=== PATIENT | female | born 1950 | race Caucasian/White ===

== ENCOUNTER 2018-11-07 21:42 | Inpatient (IN) | payer BC ==
[~2018-11-07] VITALS: Ht 165.1 cm; Wt 87.1 kg
[2018-11-07 21:45] VITALS: BP 139/88
--- NOTE | 2018-11-07 22:02 | NUR ---
PT AMBULATED TO ER BED 10
[2018-11-07] MEDS ORDERED: ADENOSINE 6 MG/2 ML VIAL IVP ONE (22:05)
--- NOTE | 2018-11-07 22:05 | NUR ---
BIB SELF CO RACING HEART RATE SINCE 12 PM. CURRENT HR: 150. EKG IN TRIAGE SHOWS SVT. PT IS A/O X4. DENIES CHEST PAIN, SOB, OR PAIN OF ANY KIND. PT REPORTS SHE HAS HAD TACHYCARDIC EPISODES IN THE PAST AND HAS BEEN ABLE TO MANAGE WITH VAGAL MANUEVERS. TODAY PT STATES SHE TRIED SUBMERGING FACE IN ICE WATER BUT IT DID NOT HELP. PT IS CALM, RESPONDING TO QUESTIONS, AND FOLLOWS COMMANDS. ERMD MADE AWARE AND IS AT BEDSIDE.
--- NOTE | 2018-11-07 22:15 | NUR ---
IV INITIATED TO LEFT AC AND LABS DRAWN.
[2018-11-07 22:22] LABS: BASOPHILS # (AUTO) 0.1 K/uL (0.00-0.22); BASOPHILS % (AUTO) 0.6 % (0.0-2.0); EOSINOPHILS # (AUTO) 0.3 K/uL (0-0.4); EOSINOPHILS % (AUTO) 2.5 % (0.0-4.0); HEMATOCRIT 43.3 % (36-48); HEMOGLOBIN 14.4 g/dL (12.0-16.0); LYMPHOCYTES # (AUTO) 5.9 K/uL (2.5-16.5); LYMPHOCYTES % (AUTO) 52.3 % (20.5-51.1); MEAN CORPUSCULAR HEMOGLOBIN 28 pg (27-31); MEAN CORPUSCULAR HGB CONC 33 g/dL (33-37); MEAN CORPUSCULAR VOLUME 83.6 fL (80-94); MONOCYTES % (AUTO) 8.6 % (1.7-9.3); NEUTROPHILS # (AUTO) 4.1 K/uL (1.8-7.7); PLATELET COUNT (AUTO) 236 K/uL (140-450); RED BLOOD CELL COUNT(AUTO) 5.18 MIL/uL (4.20-5.40); RED CELL DISTRIBUTION WIDTH 13.8 % (11.6-13.7); WHITE BLOOD COUNT (AUTO) 11.3 K/uL (4.8-10.8)
--- NOTE | 2018-11-07 22:25 | NUR ---
DR GAMING AT BEDSIDE, PT HEARTRATE 88 AT THIS TIME. OK TO HOLD ADNOSINE AND CONTINUE TO MONITOR Addendum: 11/07/18 at 2230 by MEDFTA ADENOSINE 6 MG
[2018-11-07 22:31] LABS: ANION GAP 15.5 (8-16); CARBON DIOXIDE 26.7 mmol/L (21-32); CREATININE 1.2 mg/dL (0.6-1.3); POTASSIUM 4.2 mmol/L (3.5-5.1)
[2018-11-07 22:36] LABS: ALBUMIN 3.8 g/dL (3.4-5.0); TOTAL BILIRUBIN 0.4 mg/dL (0.0-1.0)
--- NOTE | 2018-11-07 23:16 | NUR ---
ASSISTED PT TO RR.
[2018-11-07] MEDS ORDERED: HYDR-5092 PO (23:59)
[2018-11-07] MEDS ORDERED: GABA300C PO (23:59)
[2018-11-07] MEDS ORDERED: ESTR1TAB19 PO (23:59)
[2018-11-07] MEDS ORDERED: LOSA25TA43 PO (23:59)
[2018-11-07] MEDS ORDERED: TRAM50TA1 PO (23:59)
[2018-11-07] MEDS ORDERED: FLUO10CA21 PO (23:59)
[2018-11-08] MEDS ORDERED: METOPROLOL 5 MG/5 ML VIAL IVP PRN (02:15)
[2018-11-08] MEDS ORDERED: ONDANSETRON 4 MG/2 ML VIAL IVP PRN (02:15)
[2018-11-08] MEDS ORDERED: MORPHINE SULFATE 4 MG/ML SYR IVP PRN (02:15)
[2018-11-08 02:45] VITALS: BP 128/67
--- NOTE | 2018-11-08 02:45 | NUR ---
PT ARRIVED TO UNIT VIA GURNEY. AMBULATED TO BED UNASSISTED. RECEIVED REPORT FROM ER NURSE ESTHER-DAVON. PT AOX4, ON ROOM AIR WITH LEFT AC #20G. DISCUSSED PLAN OF CARE AND PT VERBALIZED UNDERSTANDING. VITAL SIGNS TAKEN AND TOLERATED WELL. NO S/S OF RESPIRATORY DISTRESS OR DISCOMFORT NOTED AT THIS TIME. MRSA NARES SWAB COLLECTED AND TOLERATED WELL. ORIENTED PT TO BEDROOM, CALL LIGHT, BED, BATHROOM. BED IN LOWEST POSITION, BED BREAKS ON, BOTH SIDE RAILS UP AND FALL PRECAUTIONS IN PLACE. BEDSIDE TABLE AND CALL LIGHT ARE WITHIN REACH. WILL CONTINUE TO MONITOR.
[2018-11-08 02:49] LABS: HEMATOCRIT 39.7 % (36-48); HEMOGLOBIN 13.2 g/dL (12.0-16.0); MEAN CORPUSCULAR HEMOGLOBIN 28 pg (27-31); MEAN CORPUSCULAR HGB CONC 33 g/dL (33-37); MEAN CORPUSCULAR VOLUME 83.1 fL (80-94); PLATELET COUNT (AUTO) 210 K/uL (140-450); RED BLOOD CELL COUNT(AUTO) 4.78 MIL/uL (4.20-5.40); RED CELL DISTRIBUTION WIDTH 13.7 % (11.6-13.7); WHITE BLOOD COUNT (AUTO) 9.5 K/uL (4.8-10.8)
--- NOTE | 2018-11-08 02:50 | NUR ---
Patient will be admitted to care of Dr. Rich. Admited to Telemetry. Will go to room 112A. Belongings list completed. Report to DAVON Mayfield.
[2018-11-08] MEDS: NACL 0.9% 1,000 ML IV SCH ×2 (03:13→15:00)
[2018-11-08 03:22] LABS: FREE T4 (FREE THYROXINE) 1.08 ng/dL (0.76-1.46); THYROID STIMULATING HORMONE 5.06 uIU/mL (0.34-3.74)
[2018-11-08 03:27] LABS: EOSINOPHILS % (MANUAL) 3 % (0-4); LYMPHOCYTES % (MANUAL) 57 % (20-46); MONOCYTES % (MANUAL) 3 % (5-12)
[2018-11-08 03:33] LABS: ANION GAP 11.5 (8-16); CARBON DIOXIDE 27.5 mmol/L (21-32); CREATININE 1.1 mg/dL (0.6-1.3)
[2018-11-08 04:00] VITALS: BP 133/63
--- NOTE | 2018-11-08 04:00 | NUR ---
VITAL SIGNS TAKEN AND TOLERATED WELL. NO S/S OF RESPIRATORY DISTRESS OR DISCOMFORT NOTED AT THIS TIME. WILL CONTINUE TO MONITOR.
--- NOTE | 2018-11-08 06:00 | NUR ---
PT RESTING IN BED. NO S/S OF RESPIRATORY DISTRESS OR DISCOMFORT NOTED AT THIS TIME. WILL CONTINUE TO MONITOR.
--- NOTE | 2018-11-08 07:39 | NUR ---
ENDORSED PT CARE TO DAY SHIFT NURSE EMILY FOR CONTINUITY OF CARE.
--- NOTE | 2018-11-08 07:43 | NUR ---
RECEIVED PT FROM PROMOTIONAL ADVERTISING ASSISTANT NURSEROGELIO, PT IS AWAKE AND SEATED ON THE BED WITH SIDE RAILS UP AND CALL LIGHT WITHIN REACH, PT DENIES PAIN AND NO SOB NOTED, PT HAS AN IV LINE ON THE LEFT AC G. 20 WITH NS AT 75ML/HR INFUSING AND INTACT. NO SIGN OF DISTRESS NOTED AND WILL CONTINUE TO MONITOR PT.
[2018-11-08 08:00] VITALS: BP 145/71
--- NOTE | 2018-11-08 08:45 | NUR ---
PT IS AWAKE AND VITAL SIGNS TAKEN, BP IS 145/71, PULSE IS 82, O2 SATURATION IS 95%, , NO SIGN OF DISTRESS NOTED AND WILL MONITOR PT.
--- NOTE | 2018-11-08 09:30 | NUR ---
PT IS AWAKE AND SEATED ON THE BED, ON THE BEDSIDE. NO SIGN OF DISTRESS NOTED.
[2018-11-08 12:00] VITALS: BP 161/74
--- NOTE | 2018-11-08 12:01 | NUR ---
PAGED BERNADINE KATZ TO INFORM MD OF THE PT'S BP RESULT OF 168/82, PULSE IS 90, RECHECKED AFTER 2 MINS AND BP IS 161/74, PULSE IS 88. AWAITING FOR MD CALL BACK.
--- NOTE | 2018-11-08 12:05 | NUR ---
SPOKE TO BERNADINE KATZ AND INFORMED MD THAT PT'S BP IS 168/82, PULSE IS 90, DR. COLINDRES MADE A TELEPHONE ORDER TO GIVE PT LABETALOL 100MG POX1 DOSE, ORDER READ BACK AND VERIFIED. WILL CARRY OUT MD ORDER.
[2018-11-08] MEDS: HYDROcodone/APAP 5/325 MG 1 TAB TAB PO PRN ×2 (12:20→21:32)
--- NOTE | 2018-11-08 12:20 | NUR ---
PT IS AWAKE ANDSEATED ON THE BED WITH ON THE BEDSIDE, VERBALIZED A PAIN RATE OF 7/10 ON HER LOWER ABDOMEN,VITAL SIGNS CHECKED DONE AND BP IS 161/74, PULSE IS 90, O2 SATURATION IS 96%, PAIN MEDICATION WAS GIVEN AND PT TOLERATED IT. NO OTHER UNTOWARD SYMPTOM NOTED. WILL MONITOR PT.
[2018-11-08] MEDS ORDERED: LABETALOL 100 MG TAB PO SCH (12:38)
--- NOTE | 2018-11-08 12:50 | NUR ---
PT IS AWAKE AND VITAL SIGNS WAS CHECKED AND BP IS 157/67, PULSE IS 85, O2 SATURATION IS 95%, ORAL MEDCAITION WAS GIVEN TO PT AND PT TOLERATED IT. WILL MONITOR PT.
--- NOTE | 2018-11-08 15:15 | NUR ---
DR. COLINDRES CAME TO THE PT'S ROOM AND SPOKE AND ASSESSED THE PT, PT RESPONDING APPROPRIATELY.
[2018-11-08] MEDS ORDERED: ASPI-1718 PO (15:56)
[2018-11-08 16:00] VITALS: BP 139/63
--- NOTE | 2018-11-08 16:10 | NUR ---
PT IS AWAKE AND SEATED ON THE BED TALKING TO ON THE BEDSIDE, VITAL SIGNS TAKEN, BP IS 139/63, PULSE IS 75, TEMPERATURE IS 98, O2 SATURATION IS 96% AND PT DENIES PAIN AT THIS TIME.
--- NOTE | 2018-11-08 17:40 | NUR ---
PT IS AMBULATING TO THE HALLWAY, NO SOB NOTED, PT ASKED FOR HAND TOWELS AND CLEAN GOWN AND WANTED TO FRESHEN UP HERSELF.
--- NOTE | 2018-11-08 19:25 | NUR ---
ENDORSED PT TO SALES ACCOUNT COORDINATOR NURSEEDILBERTO FOR CONTINUITY OF CARE, PT IS STABLE AT THIS TIME WIT ON THE BEDSIDE.
--- NOTE | 2018-11-08 19:26 | NUR ---
REPORT RECEIVED FROM AM NURSE AT BEDSIDE. PT IN STABLE CONDITION. AAOX4. INTRODUCED SELF TO PT. BOARD UPDATED. NO COMPLAINTS OF PAIN. NO SOB. AFEBRILE. IV SITE L AC 20G RUNNING NS@75ML/HR PATENT AND INTACT. SKIN WARM, DRY, AND INTACT WITH NO OPEN WOUNDS. BED LOCKED IN LOW POSITION. CALL ESTRADA WITHIN REACH. SAFETY PRECAUTIONS IN PLACE. ALL NEEDS MET AT THIS TIME.
[2018-11-08 20:00] VITALS: BP 140/62
--- NOTE | 2018-11-08 21:32 | NUR ---
NORCO GIVEN FOR 6/10 PAIN. PT TOLERATED WELL.
--- NOTE | 2018-11-08 23:15 | NUR ---
PT AWAKE AND ALERT ON HER PHONE IN BED. NO S/S OF DISTRESS NOTED. BREATHING EVEN, UNLABORED, AND WNL. WILL CONTINUE TO MONITOR.
[2018-11-09] VITALS: BP 138/65
--- NOTE | 2018-11-09 01:15 | NUR ---
PT SLEEPING COMFORTABLY IN BED BUT AROUSABLE. NO S/S OF DISTRESS NOTED. BREATHING EVEN, UNLABORED, AND WNL. WILL CONTINUE TO MONITOR.
--- NOTE | 2018-11-09 03:10 | NUR ---
PT SLEEPING COMFORTABLY IN BED BUT AROUSABLE. NO S/S OF DISTRESS NOTED. NO COMPLAINTS OF PAIN. NO SOB. AFEBRILE. WILL CONTINUE TO MONITOR.
[2018-11-09 04:00] VITALS: BP 133/69
--- NOTE | 2018-11-09 04:30 | NUR ---
PT UP OUT OF BED TO USE THE RESTROOM. NO S/S OF DISTRESS NOTED. WILL CONTINUE TO MONITOR.
[2018-11-09] MEDS: NACL 0.9% 1,000 ML IV SCH (04:40)
--- NOTE | 2018-11-09 05:50 | NUR ---
PT SLEEPING BUT AROUSABLE. NO S/S OF DISTRESS NOTED. BREATHING EVEN, UNLABORED, AND WNL. WILL CONTINUE TO MONITOR.
[2018-11-09 07:08] LABS: BASOPHILS % (AUTO) 0.6 % (0.0-2.0); EOSINOPHILS # (AUTO) 0.2 K/uL (0-0.4); EOSINOPHILS % (AUTO) 2.6 % (0.0-4.0); HEMATOCRIT 39.1 % (36-48); LYMPHOCYTES # (AUTO) 3.9 K/uL (2.5-16.5); LYMPHOCYTES % (AUTO) 53.5 % (20.5-51.1); MEAN CORPUSCULAR HEMOGLOBIN 28 pg (27-31); MEAN CORPUSCULAR HGB CONC 33 g/dL (33-37); MEAN CORPUSCULAR VOLUME 83.5 fL (80-94); MONOCYTES # (AUTO) 0.6 K/uL (0.8-1.0); MONOCYTES % (AUTO) 8.9 % (1.7-9.3); NEUTROPHILS # (AUTO) 2.5 K/uL (1.8-7.7); NEUTROPHILS % (AUTO) 34.4 % (42.2-75.2); PLATELET COUNT (AUTO) 187 K/uL (140-450); RED BLOOD CELL COUNT(AUTO) 4.68 MIL/uL (4.20-5.40); RED CELL DISTRIBUTION WIDTH 13.9 % (11.6-13.7); WHITE BLOOD COUNT (AUTO) 7.3 K/uL (4.8-10.8)
--- NOTE | 2018-11-09 07:15 | NUR ---
REPORT GIVEN TO AM NURSE AT BEDSIDE. PT IN STABLE CONDITION.
--- NOTE | 2018-11-09 07:16 | NUR ---
RECEIVED REPORT FROM MANAGER STERILE PROCESSING NURSE. PATIENT SITTING IN BED WATCHING TV. NO DISTRESS NOTED. COMPLAINS OF LOW BACK PAIN, WILL ADMINISTER NORCO. AAOX4, CALM, COOPERATIVE, SKIN COLOR APPROPRIATE TO ETHNICITY, WARM TO TOUCH. SKIN INTACT. IV SITE INTACT, PATENT, AND INFUSING IVF PER MD ORDERS. ABDOMEN SOFT. RESPIRATIONS EVEN, UNLABORED, ON ROOM AIR. REVIEWED PLAN OF CARE WITH PATIENT. PATIENT VERBALIZED UNDERSTANDING. SAFETY MEASURES IN PLACE, CALL LIGHT WITHIN REACH. WILL CONTINUE TO MONITOR.
[2018-11-09 07:28] LABS: ANION GAP 15.7 (8-16); CARBON DIOXIDE 25.3 mmol/L (21-32); CREATININE 0.9 mg/dL (0.6-1.3)
[2018-11-09 07:38] LABS: MAGNESIUM 1.8 mg/dL (1.8-2.4); PHOSPHORUS 3.7 mg/dL (2.5-4.9)
[2018-11-09 08:00] VITALS: BP 148/80
[2018-11-09] MEDS: HYDROcodone/APAP 5/325 MG 1 TAB TAB PO PRN (08:26)
--- NOTE | 2018-11-09 08:30 | NUR ---
PATIENT SITTING IN BED WATCHING TV. COMPLAINS OF LOW BACK PAIN, NORCO GIVEN. OTHER. SCHEDULED MEDICATIONS DUE GIVEN. WILL CONTINUE TO MONITOR.
[2018-11-09] MEDS ORDERED: ASPIRIN 81 MG TAB.CHEW PO SCH (09:00)
--- NOTE | 2018-11-09 09:52 | NUR ---
PATIENT HAS BEEN SCREENED AND CATEGORIZED MODERATE NUTRITION RISK. PATIENT WILL BE SEEN WITHIN 3-5 DAYS OF ADMISSION. 11/10/18-11/12/[address]
--- NOTE | 2018-11-09 11:30 | NUR ---
PATIENT SITTING IN BED TALKING WITH FAMILY MEMBER AT BEDSIDE. NO DISTRESS NOTED. DENIES ANY PAIN. WILL CONTINUE TO MONITOR.
[2018-11-09 12:00] VITALS: BP 150/71
--- NOTE | 2018-11-09 14:30 | NUR ---
PATIENT SITTING AT BEDSIDE ON HER PHONE. CONDITION UNCHANGED. WILL CONTINUE TO MONITOR.
--- NOTE | 2018-11-09 16:45 | NUR ---
DISCHARGE INSTRUCTIONS PROVIDED TO PATIENT IN PREFERRED LANGUAGE OF ESTONIAN. FOLLOW-UP VISIT WITH PCP, NEW/CHANGED MEDICATION REGIMEN AND SIDE EFFECTS, DIET REGIMEN, AND TO FOLLOW-UP WITH TEXTILE COLORIST FORMULATOR. ANSWERED ALL OF PATIENT/FAMILY QUESTIONS REGARDING DISCHARGE. PATIENT/FAMILY VERBALIZED COMPLETE UNDERSTANDING. IV SITE REMOVED WITH MINIMAL BLOOD AND LUMEN COMPLETELY INTACT. ID BANDS REMOVED. ESCORTED PATIENT TO LOBBY VIA WHEELCHAIR. PATIENT DISCHARGED AT THIS TIME IN PRIVATE VEHICLE TO HOME IN STABLE CONDITION.
--- NOTE | 2018-11-10 12:51 | NUR ---
RECEIVED CALL FROM AJITH FROM [facility] [place]. REQUESTED ER REPORT AND H&P TO BE FAXED TO HER. FAXED FACE SHEET, ER REPORT AND H&P TO HER. TOLD HER NO DC SUMMARY YET. FAX [phone] PHONE [phone]
== END 2018-11-09 16:45 | disposition home or self-care (01) | DRG 310 ==
LOC: MED 21:42 → MTU 11-08 02:12 → UNDOADMIN 11-08 02:12 → MTU 11-09 07:18 → UNDODISIN 11-09 16:45
PROVIDERS: ADMIT Hospitalist; ATTEND Hospitalist
DX: I47.1 Supraventricular tachycardia (principal); E66.9 Obesity, unspecified; I10 Essential (primary) hypertension; M79.7 Fibromyalgia; N30.10 Interstitial cystitis (chronic) without hematuria; M19.90 Unspecified osteoarthritis, unspecified site; E11.65 Type 2 diabetes mellitus with hyperglycemia; Z90.710 Acquired absence of both cervix and uterus; Z90.49 Acquired absence of other specified parts of digestive tract; Z79.899 Other long term (current) drug therapy; Z88.8 Allergy status to other drugs, medicaments and biological substances; Z68.32 Body mass index [BMI] 32.0-32.9, adult; Z79.84 Long term (current) use of oral hypoglycemic drugs
CPT/HCPCS: 36415; 71045; 80048; 80053; 82948; 83735; 84100; 84439; 84443; 84484; 85025; 87081; 93005; 99285; J0153; J7030; Q0092